=== PATIENT | female | born 1935 | race Caucasian/White ===

== ENCOUNTER 2022-02-22 11:26 | Inpatient (IN) | payer MEDICAID, OTHER ==
[~2022-02-22] VITALS: Ht 157.5 cm; Wt 52.8 kg
[2022-02-22] MEDS ORDERED: ASPIRIN 81MG TABLET PO ONE (12:45)
[2022-02-22] MEDS ORDERED: LISINOPRIL 20MG TABLET PO ONE (13:45)
[2022-02-22 13:49] LABS: BASOPHILS % 0.7 % (0.0-2.0); EOSINOPHILS % 0.6 % (0.0-5.0); HEMOGLOBIN. 13.9 g/dL (12.0-16.0); LYMPHOCYTES % 9.9 % (20.0-50.0); MEAN CORPUSCULAR HEMOGLOBIN 30.6 pg (28.0-32.0); MEAN CORPUSCULAR VOLUME 92.3 fL (81.0-99.0); MEAN PLATELET VOLUME 9.4 fl (7.4-10.4); MONOCYTES % 7.9 % (2.0-8.0); NEUTROPHILS % 80.9 % (40.0-76.0); PLATELET 172 x1000/uL (130-400); RED BLOOD CELL COUNT 4.55 mill/uL (4.2-5.4)
[2022-02-22 13:56] LABS: PROTHROMBIN TIME 10.9 sec (9.6-11.0)
[2022-02-22 21:12] LABS: CHLORIDE 100 mEq/L (98-107)
[2022-02-23 10:30] VITALS: BP 135/66
[2022-02-23] MEDS ORDERED: ACETAMINOPHEN 325MG TABLET PO PRN (10:30)
[2022-02-23] MEDS ORDERED: ONDANSETRON HCL 4MG/2ML INJ IV PRN (10:30)
[2022-02-23 11:00] VITALS: BP 135/66
[2022-02-23] MEDS ORDERED: ASPIRIN 81MG TABLET PO SCH (11:00)
[2022-02-23] MEDS ORDERED: IOHEXOL-350 100 ML BOTTLE ONE (11:12)
[2022-02-23] MEDS ORDERED: NITROGLYCERIN SPRAY/4.9GM CAN TL ONE (11:30)
[2022-02-23 12:00] VITALS: BP 132/59
[2022-02-23] MEDS ORDERED: LORA10TA7 PO (12:20)
[2022-02-23] MEDS ORDERED: GABA-532 PO (12:21)
[2022-02-23] MEDS ORDERED: LISI10TA26 PO (12:22)
[2022-02-23] MEDS ORDERED: ATOR20TA65 PO (12:23)
[2022-02-23] MEDS ORDERED: FLUO20CA39 PO (12:23)
[2022-02-23] MEDS ORDERED: ALBUTEROL INH (12:25)
[2022-02-23] MEDS ORDERED: ALEN70TA79 PO (12:25)
[2022-02-23] MEDS ORDERED: FLUT1BLS3 IH (12:25)
[2022-02-23] MEDS ORDERED: MONT-39 PO (12:30)
[2022-02-23] MEDS ORDERED: ASPI-1406 PO (12:30)
[2022-02-23] MEDS ORDERED: TIOT4MIS3 PO (12:30)
[2022-02-23 16:00] VITALS: BP 144/69
[2022-02-23 17:21] VITALS: BP 144/69
== END 2022-02-23 19:07 | disposition home or self-care (01) | DRG 203 ==
LOC: ER 11:26 → MICUSO 16:52 → EDBEDREQ 16:53 → EDBEDREQTM 16:53 → 8WST 02-23 10:21
PROVIDERS: ADMIT Internal Medicine; ATTEND Internal Medicine
DX: M94.0 Chondrocostal junction syndrome [Tietze] (principal); J96.01 Acute respiratory failure with hypoxia; I10 Essential (primary) hypertension; I16.0 Hypertensive urgency; J45.909 Unspecified asthma, uncomplicated; Z20.822 Contact with and (suspected) exposure to COVID-19
CPT/HCPCS: 36415; 71045; 75571; 80053; 83880; 84484; 85025; 87426; 93005; 99285; Q9967